=== PATIENT | female | born 1950 | race Caucasian/White ===

== ENCOUNTER → 2018-11-14 | Outpatient (REF) | payer BC | LOC: M LAB REF 16:55 | PROVIDERS: ATTEND Internal Medicine Pulmonary Disease | DX: R05 Cough (principal); R09.82 Postnasal drip ==

== ENCOUNTER → 2018-12-06 | Outpatient (CLI) | payer MEDICARE ==
[~2018-12-06] MED LIST: METHACHOLINE KIT (J7674) INH ONE
== END ==
LOC: M CARPUL 10:52
PROVIDERS: ATTEND Internal Medicine Pulmonary Disease
DX: R06.00 Dyspnea, unspecified (principal); Z53.9 Procedure and treatment not carried out, unspecified reason

== ENCOUNTER → 2018-12-22 | Outpatient (CLI) | payer MEDICARE ==
--- NOTE | 2018-12-22 14:42 | PFTRPT ---
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 Review Status: Not Reviewed Pre-Bronch Post-Bronch Pred Actual %Pred Actual %Chng SPIROMETRY FVC (L) 3.05 3.08 100 3.03 -1 FEV1 (L) 2.31 2.40 104 2.37 -1 FEV1/FVC (%) 76 78 102 78 FEF 25% (L/sec) 4.79 5.39 112 4.79 -11 FEF 50% (L/sec) 3.33 3.17 95 2.99 -5 FEF 75% (L/sec) 0.98 0.59 60 0.73 22 FEF 25-75% (L/sec) 1.92 2.17 112 2.04 -6 FEF Max (L/sec) 5.71 5.40 94 4.92 -8 FIVC (L) 2.71 2.89 6 FIF 50% (L/sec) 3.31 3.12 94 4.17 33 FIF Max (L/sec) 3.30 4.25 28 Expiratory Time (sec) 7.24 7.07 -2 Back Extrap Vol (L) 0.10 0.13 36 Time To FEFmax (sec) 0.134 0.129 -4
== END ==
LOC: M CARPUL 12:02
PROVIDERS: ATTEND Internal Medicine Pulmonary Disease
DX: R06.00 Dyspnea, unspecified (principal)
CPT/HCPCS: 94070; 95070; J7674